=== PATIENT | female | born 1975 | race African-American/Black ===

== ENCOUNTER 2022-05-30 10:07 | Outpatient (CLI) | payer OTHER | END 2022-05-30 11:11 | disposition home or self-care (01) | LOC: SONOGRAMA 10:07 | PROVIDERS: ATTEND Obstetrics & Gynecology | DX: D25.9 Leiomyoma of uterus, unspecified (principal) ==

== ENCOUNTER 2022-08-28 10:09 | Emergency (ER) | payer OTHER ==
[~2022-08-28] VITALS: Ht 149.9 cm; Wt 52.2 kg
[2022-08-28] MEDS ORDERED: AMOX-CLAV 875-1 EACH PO (13:41)
== END 2022-08-28 13:45 | disposition home or self-care (01) ==
LOC: ER 10:09
DX: J06.9 Acute upper respiratory infection, unspecified (principal); G40.802 Other epilepsy, not intractable, without status epilepticus; F32.89 Other specified depressive episodes; Z88.0 Allergy status to penicillin; Z20.822 Contact with and (suspected) exposure to COVID-19

== ENCOUNTER 2022-09-05 10:23 | Outpatient (CLI) | payer OTHER ==
[~2022-09-05 10:23] MED LIST: AMOX-CLAV 875-1 EACH PO
== END 2022-09-05 10:28 | disposition home or self-care (01) ==
LOC: RAD 10:23
PROVIDERS: ATTEND Specialist
DX: M51.36 Other intervertebral disc degeneration, lumbar region (principal); M47.816 Spondylosis without myelopathy or radiculopathy, lumbar region; M54.17 Radiculopathy, lumbosacral region

== ENCOUNTER 2022-10-07 09:15 | Inpatient (IN) | payer OTHER ==
[~2022-10-07] VITALS: Ht 149.9 cm; Wt 52.2 kg
[2022-10-13] MEDS ORDERED: PERCOCET 5-3251 EACH PO (07:44)
== END 2022-10-13 11:14 | disposition home or self-care (01) | DRG 743 ==
LOC: O/R 10-10 05:30 → OB/GYN 10-10 05:30 → SURH 10-10 07:00 → OB/GYN 10-10 09:57
PROVIDERS: ADMIT Specialist; ATTEND Specialist
PROC: 0UT70ZZ Resection of Bilateral Fallopian Tubes, Open Approach (ICD-10-PCS; 2022-10-10)
PROC: 0UT90ZZ Resection of Uterus, Open Approach (ICD-10-PCS; principal; 2022-10-10 07:00)
DX: D25.1 Intramural leiomyoma of uterus (principal); D27.0 Benign neoplasm of right ovary; N72 Inflammatory disease of cervix uteri; N83.02 Follicular cyst of left ovary; N73.6 Female pelvic peritoneal adhesions (postinfective); N83.01 Follicular cyst of right ovary; Z20.822 Contact with and (suspected) exposure to COVID-19

== ENCOUNTER 2023-01-14 13:50 | Outpatient (CLI) | payer OTHER ==
[~2023-01-14 13:50] MED LIST changes: +PERCOCET 5-3251 EACH PO
== END 2023-01-14 14:00 | disposition home or self-care (01) ==
LOC: PPH VACUNA 13:50
PROVIDERS: ATTEND Emergency Medicine Pediatric Emergency Medicine
DX: Z23 Encounter for immunization (principal)
CPT/HCPCS: 90686; G0008

== ENCOUNTER 2023-05-27 09:07 | Emergency (ER) | payer OTHER ==
[~2023-05-27] VITALS: Ht 147.3 cm; Wt 52.6 kg
[2023-05-27] MEDS ORDERED: SUMATRIPTAN SUCCINATE 6 MG/0.5 ML VIAL SUBCUTANEO STA (10:04)
[2023-05-28] MEDS ORDERED: ESTR0.624 PO (09:06)
[2023-05-28] MEDS ORDERED: BUTALB-ACETAMI1 EACH PO (14:15)
== END 2023-05-27 13:55 | disposition home or self-care (01) ==
LOC: ER 09:07
DX: G43.909 Migraine, unspecified, not intractable, without status migrainosus (principal); Z88.0 Allergy status to penicillin

== ENCOUNTER 2023-05-28 08:50 | Emergency (ER) | payer OTHER ==
[~2023-05-28] VITALS: Ht 149.9 cm; Wt 51.7 kg
[2023-05-28] MEDS ORDERED: ESTR0.624 PO (09:06)
[2023-05-28] MEDS ORDERED: DIPHENHYDRAMINE HCL 50 MG/ML VIAL 1ML IM STA (09:20)
[2023-05-28] MEDS ORDERED: DEXAMETHASONE SODIUM PHOSPHATE 4 MG/ML VIAL IM STA (09:20)
[2023-05-28] MEDS ORDERED: ACETAMINOPHEN 500 MG GEL..CAP PO STA (09:20)
[2023-05-28 10:30] LABS: HEMATOCRIT 39.8 % (36.0-45.00); MEAN CELL VOLUME 83.4 fL (80.00-100.00); MEAN CORPUSCULAR HEMOGLOBIN 29.4 pg (27.00-32.0); MEAN CORPUSCULAR HGB CONC 35.3 g/dl (32.0-36.0); PLATELET COUNT 223 K/uL (150-450); RED BLOOD COUNT 4.77 M/uL (4.00-6.00); RED CELL DISTRIBUTION WIDTH 13.5 % (11.5-14.5)
[2023-05-28 11:04] LABS: ALBUMIN 3.8 gm/dL (3.4-5.0); BILIRUBIN TOTAL 0.9 mg/dL (0.3-1.2); CALCIUM 8.9 mg/dL (8.5-10.1); CREATININE SERUM 0.77 mg/dL (0.55-1.02); GFR 80.35; POTASSIUM 3.59 mEq/L (3.5-5.1); TOTAL PROTEIN 7.8 gm/dL (6.4-8.2)
[2023-05-28] MEDS ORDERED: BUTALB-ACETAMI1 EACH PO (14:15)
== END 2023-05-28 14:25 | disposition home or self-care (01) ==
LOC: ER 08:50
PROVIDERS: General Practice
DX: G43.909 Migraine, unspecified, not intractable, without status migrainosus (principal); Z88.6 Allergy status to analgesic agent

== ENCOUNTER 2023-10-15 10:57 | Outpatient (CLI) | payer OTHER ==
[~2023-10-15 10:57] MED LIST changes: +BUTALB-ACETAMI1 EACH PO; +ESTR0.624 PO
== END 2023-10-15 11:06 | disposition home or self-care (01) ==
LOC: MAMO-SONO 10:57
PROVIDERS: ATTEND Specialist
DX: N63.0 Unspecified lump in unspecified breast (principal); Z12.31 Encounter for screening mammogram for malignant neoplasm of breast

== ENCOUNTER → 2023-11-23 10:29 | Outpatient (CLI) | payer OTHER | END | disposition home or self-care (01) | LOC: LAB 10:29 | DX: A64 Unspecified sexually transmitted disease (principal) ==

== ENCOUNTER 2023-12-24 10:30 | Outpatient (CLI) | payer OTHER | END 2023-12-24 10:45 | disposition home or self-care (01) | LOC: PPH VACUNA 10:30 | PROVIDERS: ATTEND Emergency Medicine Pediatric Emergency Medicine | DX: Z23 Encounter for immunization (principal) ==

== ENCOUNTER 2024-06-14 11:06 | Outpatient (CLI) | payer OTHER | END 2024-06-14 11:11 | disposition home or self-care (01) | LOC: MRI 11:06 | PROVIDERS: ATTEND Neuromusculoskeletal Medicine & OMM | DX: D64.9 Anemia, unspecified (principal); G40.909 Epilepsy, unspecified, not intractable, without status epilepticus | CPT/HCPCS: 70553 ==

== ENCOUNTER 2024-06-18 08:39 | Outpatient (CLI) | payer OTHER ==
[2024-06-18 10:59] LABS: ALBUMIN 3.8 gm/dL (3.4-5.0); ALKALINE PHOSPHATASE 87 U/L (50-136); ALT/SGPT 23 U/L (12-78); ANION GAP 10 (10.0-20.0); AST/SGOT 23 U/L (15-37); BILIRUBIN TOTAL 0.59 mg/dL (0.3-1.2); BLOOD UREA NITROGEN 14 mg/dL (7-18); BUN CREA RATIO 20 (7.0-25.0); CALCIUM 8.9 mg/dL (8.5-10.1); CARBON DIOXIDE 26 mEq/L (21-32); CHLORIDE 109 mmol/L (98-107); CHOL HDL RATIO 2.5 (0-5.0); CHOLESTEROL 197 mg/dL (0-200); CREATININE SERUM 0.69 mg/dL (0.55-1.02); GFR 90.81; GLOBULINA 3.5 G/DL (2.4-3.5); GLUCOSE FASTING 96 mg/dL (65-100); GLUCOSE RANDOM 96 mg/dL (65-100); HDL 79 mg/dl (40-60); LDL 104 mg/dl (0-130); OSMOLALITY SERUM 282 MOSM/KG (275-295); SODIUM 141 mmol/L (136-145); TOTAL PROTEIN 7.3 gm/dL (6.4-8.2); TRIGLYCERIDES 70 mg/dL (0-150); VLDL 14 (0-39)
[2024-06-18 11:03] LABS: C-REACTIVE PROTEIN < 0.29 MG/DL (0.00-0.29)
[2024-06-18 13:13] LABS: HEMATOCRIT 40.1 % (36.0-45.00); HEMOGLOBIN 13.6 g/dL (12.0-15.00); MEAN CELL VOLUME 83.3 fL (80.00-100.00); MEAN CORPUSCULAR HEMOGLOBIN 28.3 pg (27.00-32.0); MEAN CORPUSCULAR HGB CONC 33.9 g/dl (32.0-36.0); PLATELET COUNT 229 K/uL (150-450); RED BLOOD COUNT 4.81 M/uL (4.00-6.00); RED CELL DISTRIBUTION WIDTH 13.3 % (11.5-14.5)
[2024-06-18 13:14] LABS: ERYTHROCYTE SEDIMENTATION RATE 6 mm/hr
== END 2024-06-18 08:40 | disposition home or self-care (01) ==
LOC: LAB 08:39
PROVIDERS: ATTEND Neuromusculoskeletal Medicine & OMM
DX: R42 Dizziness and giddiness (principal); R51.9 Headache, unspecified; D64.9 Anemia, unspecified; M06.9 Rheumatoid arthritis, unspecified; E03.9 Hypothyroidism, unspecified; E78.00 Pure hypercholesterolemia, unspecified; E78.1 Pure hyperglyceridemia; R73.01 Impaired fasting glucose; R73.9 Hyperglycemia, unspecified; G62.9 Polyneuropathy, unspecified; R20.2 Paresthesia of skin; E11.9 Type 2 diabetes mellitus without complications; E22.1 Hyperprolactinemia

== ENCOUNTER 2024-06-20 06:08 | Outpatient (CLI) | payer OTHER | END 2024-06-20 06:23 | disposition home or self-care (01) | LOC: LAB 06:08 | PROVIDERS: ATTEND Neuromusculoskeletal Medicine & OMM | DX: R42 Dizziness and giddiness (principal); R51.9 Headache, unspecified; D64.9 Anemia, unspecified; M06.9 Rheumatoid arthritis, unspecified; E03.9 Hypothyroidism, unspecified; E78.00 Pure hypercholesterolemia, unspecified; E78.1 Pure hyperglyceridemia; G62.9 Polyneuropathy, unspecified; R20.2 Paresthesia of skin; E11.9 Type 2 diabetes mellitus without complications; R73.01 Impaired fasting glucose; R73.9 Hyperglycemia, unspecified ==

== ENCOUNTER 2024-11-15 08:11 | Outpatient (CLI) | payer OTHER | END 2024-11-15 08:22 | disposition home or self-care (01) | LOC: SONOGRAMA 08:11 | DX: E04.2 Nontoxic multinodular goiter (principal) ==

== ENCOUNTER 2025-01-10 10:40 | Outpatient (CLI) | payer OTHER ==
[2025-01-12 08:11] LABS: HEPATITIS A ANTIBODY IGG Negative (Negative); HEPATITIS C VIRUS ANTIBODY Non Reactive (Non Reactive)
== END 2025-01-10 10:42 | disposition home or self-care (01) ==
LOC: LAB 10:40
DX: A64 Unspecified sexually transmitted disease (principal); B15.9 Hepatitis A without hepatic coma; B17.10 Acute hepatitis C without hepatic coma

== ENCOUNTER 2025-01-14 07:31 | Outpatient (CLI) | payer OTHER ==
[2025-01-14 09:14] LABS: URINE APPEARANCE Clear; URINE BILIRRUBIN Negative (NEGATIVE); URINE BLOOD Negative; URINE COLOR Yellow; URINE GLUCOSE Negative (NEGATIVE); URINE KETONE Negative (NEGATIVE); URINE LEUKOCYTE Negative; URINE NITRATE Positive; URINE PROTEIN Negative (NEGATIVE); URINE UROBILINOGEN 0.2 E.U./dl
[2025-01-14 09:19] LABS: URINE EPITHELIAL CELLS 7.8 uL (0.0-38.8); URINE WBC 2.4 uL (0.0-23.2)
[2025-01-14 09:28] LABS: BASO % 1.0 % (0.1-1.2); EOS # 0.30 (0.04-0.54); EOS % 4.1 % (0.7-7.0); LYMPH # 2.07 (1.18-3.74); LYMPH % 28.4 % (19.3-53.1); MEAN PLATELET VOLUME 11.40 fl (9.4-12.4); MONO # 0.34 (0.24-0.82); MONO % 4.7 % (4.7-12.5); NEUT # 4.49 (1.56-6.13); NEUT % 61.7 % (34.0-71.1); RED CELL DISTRIBUTION WIDTH 12.6 % (11.6-14.4)
[2025-01-14 09:31] LABS: URINE BACTERIA > 9821.5 uL (0.0-1933); URINE CAST 0.00 uL (0.0-1.40); URINE RBC 0.8 uL (0.0-20.8)
[2025-01-14 10:45] LABS: ALT/SGPT 23 U/L (12-78); AST/SGOT 23 U/L (15-37); BILIRUBIN TOTAL 0.48 mg/dL (0.3-1.2); BUN CREA RATIO 19 (7.0-25.0); CHOL HDL RATIO 2.5 (0-5.0); CREATININE SERUM 0.72 mg/dL (0.55-1.02); FREE TRIODOTIRONINE 2.75 pg/ml (2.18-3.98); GFR 86.09; GLOBULINA 3.5 G/DL (2.4-3.5); GLUCOSE FASTING 94 mg/dL (65-100); HDL 74 mg/dl (40-60); LDL 100 mg/dl (0-130); OSMOLALITY SERUM 287 MOSM/KG (275-295); T4 FREE 0.95 NG/ML (0.76-1.46); TSH 2.520 uIU/mL (0.358-3.74); VLDL 11 (0-39)
[2025-01-16 13:02] LABS: CORTISOL 8.91 ug/dl; VITAMIN D3 25 HYDROXY 39.48 ng/ml (30-120)
== END 2025-01-14 07:37 | disposition home or self-care (01) ==
LOC: LAB 07:31
DX: R89.1 Abnormal level of hormones in specimens from other organs, systems and tissues (principal); R74.8 Abnormal levels of other serum enzymes; R94.4 Abnormal results of kidney function studies; R94.7 Abnormal results of other endocrine function studies; R94.6 Abnormal results of thyroid function studies; E28.1 Androgen excess; E06.3 Autoimmune thyroiditis; E88.819 Insulin resistance, unspecified; E72.11 Homocystinuria; R79.82 Elevated C-reactive protein (CRP); R27.9 Unspecified lack of coordination; N39.0 Urinary tract infection, site not specified; E78.00 Pure hypercholesterolemia, unspecified; E55.9 Vitamin D deficiency, unspecified; D51.8 Other vitamin B12 deficiency anemias; E28.0 Estrogen excess; E61.1 Iron deficiency; E86.0 Dehydration